=== PATIENT | female | born 1980 | race Caucasian/White ===

== ENCOUNTER → 2018-10-09 | Outpatient (CLI) | payer BC, OTHER ==
[~2018-10-09] MED LIST: ANAPROX DS550 MG PO; FLEXERIL PO; NOHOMEMEDICATIONS; NORCO 5-325 TA1 EACH PO; PERCOCET 5-3251 EACH PO; PREDNISONE 20 M20 MG PO; TRAMADOL 50 MG50 MG PO; ZOFRAN4 MG PO
== END ==
LOC: M.RAD 15:53
DX: M47.894 Other spondylosis, thoracic region (principal); M48.07 Spinal stenosis, lumbosacral region; Z87.828 Personal history of other (healed) physical injury and trauma

== ENCOUNTER 2020-02-20 14:36 | Emergency (ER) | payer OTHER, BC ==
[~2020-02-20] VITALS: Ht 165.1 cm; Wt 104.3 kg
[2020-02-20] MEDS ORDERED: LISINOPRIL-HCT1 EACH PO (14:48)
[2020-02-20] MEDS ORDERED: KEFLEX500 M1 PO (14:48)
[2020-02-20] MEDS ORDERED: NORCO 5-325 TA1 EAC1 PO (15:57)
[2020-02-20 16:08] VITALS: BP 132/70
== END 2020-02-20 16:08 | disposition home or self-care (01) ==
LOC: M.ERS 14:36
DX: S43.402A Unspecified sprain of left shoulder joint, initial encounter (principal); Z90.710 Acquired absence of both cervix and uterus; Z88.0 Allergy status to penicillin; X50.0XXA Overexertion from strenuous movement or load, initial encounter; Y93.89 Activity, other specified; Y92.89 Other specified places as the place of occurrence of the external cause; Y99.8 Other external cause status

== ENCOUNTER 2020-12-08 17:10 | Emergency (ER) | payer BC ==
[~2020-12-08] VITALS: Ht 165.1 cm; Wt 91.2 kg
[~2020-12-08 17:10] MED LIST changes: +KEFLEX500 M1 PO; +LISINOPRIL-HCT1 EACH PO; +NORCO 5-325 TA1 EAC1 PO
[2020-12-08] MEDS ORDERED: VITAMIN D3100 MCG PO (17:25)
[2020-12-08] MEDS ORDERED: VITAMIN B12 (17:26)
[2020-12-08] MEDS ORDERED: VITAMIN C (17:26)
[2020-12-08] MEDS ORDERED: FLONASE 0.05%50 MCG NARES (17:27)
[2020-12-08] MEDS ORDERED: VESICARE 5 MG TA5 M1 PO (17:27)
[2020-12-08] MEDS ORDERED: MELOXICAM15 MG PO (17:27)
[2020-12-08] MEDS ORDERED: ZYRTEC10 M5 PO (17:27)
[2020-12-08 17:37] LABS: URINE BILIRUBIN NEGATIVE (Negative); URINE BLOOD NEGATIVE (Negative); URINE CLARITY CLEAR; URINE COLOR YELLOW; URINE GLUCOSE-RANDOM NEGATIVE (Negative); URINE KETONES NEGATIVE (Negative); URINE LEUKOCYTES-REFLEX NEGATIVE (Negative); URINE NITRITE-REFLEX NEGATIVE (Negative); URINE PROTEIN NEGATIVE (Negative); URINE UROBILINOGEN 0.2 E.U./dl (0.2-1.0)
[2020-12-08 17:48] LABS: ABSOLUTE BASOPHILS 0.1 thou/uL (0.0-0.2); ABSOLUTE EOSINOPHILS 0.2 thou/uL (0.0-0.7); ABSOLUTE LYMPHOCYTES 3.5 thou/uL (0.8-5.3); ABSOLUTE MONOCYTES 0.8 thou/uL (0.0-1.2); ABSOLUTE NEUTROPHILS 4.6 thou/uL (1.6-8.1); BASOPHILS 0.9 %; EOSINOPHILS 2.6 %; HEMATOCRIT 37.1 % (37.0-47.0); HEMOGLOBIN 12.8 gm/dL (12.0-15.0); LYMPHOCYTES 38.1 %; MCH 31.9 pg (26.0-34.0); MCHC 34.5 g/dL (28.0-37.0); MCV 92.5 fL (80.0-100.0); MONOCYTES 8.6 %; MPV 7.3 fl. (7.2-11.1); NUCLEATED RBCS 0 /100WBC; PLATELET COUNT* 358 thou/uL (150-400); POLYS 49.8 %; RBC 4.01 mil/uL (4.20-5.00); RDW-CV 13.1 % (10.5-14.5); WBC 9.2 thou/uL (4.0-11.0)
[2020-12-08 17:55] LABS: CALCIUM 9.2 mg/dL (8.5-10.1); CREATININE 0.8 mg/dL (0.6-1.3); POTASSIUM 3.8 mmol/L (3.5-5.1)
[2020-12-08 17:59] LABS: ALBUMIN 3.4 g/dL (3.4-5.0); TOTAL BILIRUBIN 0.2 mg/dL (<0.1-1.0); TOTAL PROTEIN 6.7 g/dL (6.4-8.2)
[2020-12-08] MEDS ORDERED: BENTYL 10 MG CA10 M1 PO (19:58)
[2020-12-08] MEDS ORDERED: ZOFRAN ODT4 MG PO (19:59)
[2020-12-08 20:20] VITALS: BP 127/80
== END 2020-12-08 20:23 | disposition home or self-care (01) ==
LOC: M.ERS 17:10
PROVIDERS: Nurse Practitioner Family
DX: K59.00 Constipation, unspecified (principal); I10 Essential (primary) hypertension; Z88.0 Allergy status to penicillin; Z98.890 Other specified postprocedural states; Z90.710 Acquired absence of both cervix and uterus

== ENCOUNTER 2021-09-01 12:53 | Emergency (ER) | payer OTHER ==
[~2021-09-01] VITALS: Ht 170.2 cm; Wt 99.8 kg
[~2021-09-01 12:53] MED LIST changes: +BENTYL 10 MG CA10 M1 PO; +FLONASE 0.05%50 MCG NARES; +MELOXICAM15 MG PO; +VESICARE 5 MG TA5 M1 PO; +VITAMIN B12; +VITAMIN C; +VITAMIN D3100 MCG PO; +ZOFRAN ODT4 MG PO; +ZYRTEC10 M5 PO
[2021-09-01] MEDS ORDERED: HYDROCODON-ACE1 EAC7 PO (17:00)
[2021-09-01 17:13] VITALS: BP 145/65
== END 2021-09-01 17:13 | disposition home or self-care (01) ==
LOC: M.ERS 12:53
DX: M25.512 Pain in left shoulder (principal); M79.602 Pain in left arm; R20.0 Anesthesia of skin; I10 Essential (primary) hypertension; Z98.890 Other specified postprocedural states; Z90.711 Acquired absence of uterus with remaining cervical stump; Z90.49 Acquired absence of other specified parts of digestive tract; Z79.899 Other long term (current) drug therapy; Z88.0 Allergy status to penicillin